=== PATIENT | male | born 1995 | race Caucasian/White ===

== ENCOUNTER 2017-01-14 20:00 | Observation (INO) | payer MEDICAID ==
[~2017-01-14] VITALS: Ht 177.8 cm; Wt 66.0 kg
[2017-01-14 20:04] VITALS: BP 139/96; PULSE 144; RESP 18; TEMP 98.4; O2SAT 95
[2017-01-15] VITALS (10 sets, daily range): BP systolic 100–131; BP diastolic 54–72; PULSE 75–100; RESP 16–20; TEMP 96.8–98; O2SAT 96–100
[2017-01-15] MEDS ORDERED: SODIUM CHLOR 0.9% 1000 ML INJ 1,000 ML IV ONE ×2 (01:03)
[2017-01-15] MEDS ORDERED: SODIUM CHLOR 0.9% 1000 ML INJ 100 ML IV ONE (01:03)
--- NOTE | 2017-01-15 01:07 | PD ---
HPI Chief Complaint: Skin Problem Time Seen by Provider: 00:58 Travel History International Travel<30 days: No Contact w/Intl Traveler<30days: No Traveled to known affect area: No History of Present Illness HPI The patient is a 21-year-old male who presents to the emergency department for erythema to the left upper extremity that radiates into the left axilla with some swelling under the left axilla. Patient does complain of subjective fevers and chills. 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 The patient states his symptoms started several days ago and progressively worsened. He does note mild tenderness along the medial aspect the left upper extremity and under the left axilla. He denies any current cough, nausea, vomiting, diarrhea, or abdominal pain. Symptoms are moderate, possibly exacerbated by history of IVDA, there are no current alleviating factors. The patient does not currently have a primary physician. The patient also complains of yellow penile discharge and burning with urination. PFSH Past Medical History ADHD: Yes (ADHD) Anxiety: Yes Depression: Yes Cancer: No Cardiovascular Problems: No Diabetes: No Diminished Hearing: No Psychiatric: Yes (PTSD, SEVERE ANXIETY, DEPRESSION, IMPULSIVE DISORDER.) Migraines: No Seizures: No Thyroid Disease: No Ulcer: No Past Surgical History Other Surgery: Yes (SKIN GRAFTS BILAT LEGS--AGE 13) Social History Alcohol Use: Yes (OCC) Tobacco Use: Yes (1/2 PPD) Substance Use: Yes (IV DRUG USE) Allergies-Medications (Allergen,Severity, Reaction): Coded Allergies: No Known Allergies (Unverified , 01/15/17) Reported Meds & Prescriptions Reported Meds & Active Scripts Active No Active Prescriptions or Reported Medications Review of Systems Except as stated in HPI: all other systems reviewed are Neg General / Constitutional: Positive: Fever, Chills Cardiovascular: No: Chest Pain or Discomfort Respiratory: No: Cough, Shortness of Breath Gastrointestinal: No: Nausea, Vomiting, Abdominal Pain Genitourinary: Positive: Dysuria, Other Skin: Positive Other (as noted in history of present illness) Neurologic: No: Weakness, Focal Abnormalities Psychiatric: Positive: Substance Abuse (IVDA with heroin) Physical Exam Narrative GENERAL: Awake, alert, 21-year-old male who appears his stated age and is in no acute respiratory distress. SKIN: Focused skin assessment warm/dry. The patient has some erythema along the medial aspect the left upper extremity consistent with lymphangitis/ lymphadenitis. HEAD: Atraumatic. Normocephalic. EYES: Pupils equal and round. No scleral icterus. No injection or drainage. ENT: No nasal bleeding or discharge. Mucous membranes pink and moist. NECK: Trachea midline. No JVD. CARDIOVASCULAR: Regular, tachycardic with a heart rate in the 120s. RESPIRATORY: No accessory muscle use. Clear to auscultation. Breath sounds equal bilaterally. GASTROINTESTINAL: Abdomen soft, non-tender, nondistended. No rebound tenderness. MUSCULOSKELETAL: Red streak going from the medial aspect the left antecubital fossa up the left upper extremity to the left axilla which is tender to palpation. Left inguinal lymphadenopathy noted that is tender to palpation. Multiple track fisher noted on the left upper extremity. NEUROLOGICAL: Awake and alert. No obvious cranial nerve deficits. Motor grossly within normal limits. Normal speech. Nonfocal. Oriented 4. PSYCHIATRIC: Appropriate mood and affect; insight and judgment normal. Data Data Last Documented VS Vital Signs Date Time Temp Pulse Resp B/P Pulse Ox O2 Delivery O2 Flow Rate FiO2 01/15/17 02:30 94 16 131/72 100 Room Air 01/14/17 20:04 98.4 Orders Electrocardiogram (01/15/17 01:03) Complete Blood Count With Diff (01/15/17 01:03) Comprehensive Metabolic Panel (01/15/17 01:03) Lactic Acid Sepsis Protocol (01/15/17 01:03) Urinalysis - C+S If Indicated (01/15/17 01:03) Blood Culture (01/15/17 01:03) Chest, Single Ap (01/15/17 01:03) Blood Glucose (01/15/17 01:03) Ecg Monitoring (01/15/17 01:03) Iv Access Insert/Monitor (01/15/17 01:03) Oximetry (01/15/17 01:03) Oxygen Administration (01/15/17 01:03) Acetaminophen (Tylenol) (01/15/17 01:15) Sodium Chlor 0.9% 1000 Ml Inj (Ns 1000 M (01/15/17 01:03) Sodium Chlor 0.9% 1000 Ml Inj (Ns 1000 M (01/15/17 01:03) Sodium Chlor 0.9% 1000 Ml Inj (Ns 1000 M (01/15/17 01:03) Piperacil-Tazo 4.5 Gm Premix (Zosyn 4.5 (01/15/17 01:15) Vancomycin Inj (Vancomycin Inj) (01/15/17 01:15) Ceftriaxone Inj (Rocephin Inj) (01/15/17 01:15) Azithromycin (Zithromax) (01/15/17 09:00) Gc And Chlamydia Pcr (01/15/17 01:08) Admit Order (Ed Use Only) (01/15/17 03:03) Vancomycin Consult Pharmacy (Vancomycin (01/15/17 03:15) Piperacil-Tazo 4.5 Gm Premix (Zosyn 4.5 (01/15/17 08:00) Place In Observation (01/15/17 ) Vital Signs (Adult) Q4H (01/15/17 03:08) Activity Oob Ad Argelia (01/15/17 03:08) Diet Regular Basic (01/15/17 Breakfast) Sodium Chlor 0.9% 1000 Ml Inj (Ns 1000 M (01/15/17 03:08) Sodium Chloride 0.9% Flush (Ns Flush) (01/15/17 03:15) Sodium Chloride 0.9% Flush (Ns Flush) (01/15/17 09:00) Ondansetron Inj (Zofran Inj) (01/15/17 03:15) Comprehensive Metabolic Panel (01/16/17 06:00) Complete Blood Count With Diff (01/16/17 06:00) Scd Bilateral/Knee High NERIS.BID (01/15/17 03:08) [place] Bilateral/Knee High NERIS.QSHIFT (01/15/17 03:08) Acetaminophen (Tylenol) (01/15/17 03:15) Oxycodone (Roxicodone) (01/15/17 03:15) Oxycodone (Roxicodone) (01/15/17 03:15) Docusate Sodium-Senna (Naomi-Colace) (01/15/17 09:00) Magnesium Hydroxide Liq (Milk Of Magnesi (01/15/17 03:15) Sennosides (Senokot) (01/15/17 03:15) Bisacodyl Supp (Dulcolax Supp) (01/15/17 03:15) Lactulose Liq (Lactulose Liq) (01/15/17 03:15) Echo 2d Comp With Doppler (01/15/17 ) Labs Laboratory Tests Test 01/15/17 01:25 White Blood Count 10.3 TH/MM3 Red Blood Count 4.60 MIL/MM3 Hemoglobin 13.1 GM/DL Hematocrit 37.7 % Mean Corpuscular Volume 81.9 FL Mean Corpuscular Hemoglobin 28.5 PG Mean Corpuscular Hemoglobin 34.9 % Concent Red Cell Distribution Width 12.8 % Platelet Count 347 TH/MM3 Mean Platelet Volume 7.2 FL Neutrophils (%) (Auto) 69.7 % Lymphocytes (%) (Auto) 18.0 % Monocytes (%) (Auto) 10.9 % Eosinophils (%) (Auto) 0.8 % Basophils (%) (Auto) 0.6 % Neutrophils # (Auto) 7.2 TH/MM3 Lymphocytes # (Auto) 1.8 TH/MM3 Monocytes # (Auto) 1.1 TH/MM3 Eosinophils # (Auto) 0.1 TH/MM3 Basophils # (Auto) 0.1 TH/MM3 CBC Comment DIFF FINAL Differential Comment Sodium Level 136 MEQ/L Potassium Level 3.3 MEQ/L Chloride Level 97 MEQ/L Carbon Dioxide Level 32.2 MEQ/L Anion Gap 7 MEQ/L Blood Urea Nitrogen 15 MG/DL Creatinine 0.80 MG/DL Estimat Glomerular Filtration 125 ML/MIN Rate Random Glucose 90 MG/DL Lactic Acid Level 1.0 mmol/L Calcium Level 9.2 MG/DL Total Bilirubin 0.6 MG/DL Aspartate Amino Transf 20 U/L (AST/SGOT) Alanine Aminotransferase 25 U/L (ALT/SGPT) Alkaline Phosphatase 76 U/L Total Protein 9.0 GM/DL Albumin 4.0 GM/DL [facility] Medical Decision Making Medical Screen Exam Complete: Yes Emergency Medical Condition: Yes Medical Record Reviewed: Yes Interpretation(s) EKG reveals normal sinus rhythm with a rate in 91. RSR prime in V1. Laboratory Tests Test 01/15/17 01:25 White Blood Count 10.3 TH/MM3 Red Blood Count 4.60 MIL/MM3 Hemoglobin 13.1 GM/DL Hematocrit 37.7 % Mean Corpuscular Volume 81.9 FL Mean Corpuscular Hemoglobin 28.5 PG Mean Corpuscular Hemoglobin 34.9 % Concent Red Cell Distribution Width 12.8 % Platelet Count 347 TH/MM3 Mean Platelet Volume 7.2 FL Neutrophils (%) (Auto) 69.7 % Lymphocytes (%) (Auto) 18.0 % Monocytes (%) (Auto) 10.9 % Eosinophils (%) (Auto) 0.8 % Basophils (%) (Auto) 0.6 % Neutrophils # (Auto) 7.2 TH/MM3 Lymphocytes # (Auto) 1.8 TH/MM3 Monocytes # (Auto) 1.1 TH/MM3 Eosinophils # (Auto) 0.1 TH/MM3 Basophils # (Auto) 0.1 TH/MM3 CBC Comment DIFF FINAL Differential Comment Sodium Level 136 MEQ/L Potassium Level 3.3 MEQ/L Chloride Level 97 MEQ/L Carbon Dioxide Level 32.2 MEQ/L Anion Gap 7 MEQ/L Blood Urea Nitrogen 15 MG/DL Creatinine 0.80 MG/DL Estimat Glomerular Filtration 125 ML/MIN Rate Random Glucose 90 MG/DL Lactic Acid Level 1.0 mmol/L Calcium Level 9.2 MG/DL Total Bilirubin 0.6 MG/DL Aspartate Amino Transf 20 U/L (AST/SGOT) Alanine Aminotransferase 25 U/L (ALT/SGPT) Alkaline Phosphatase 76 U/L Total Protein 9.0 GM/DL Albumin 4.0 GM/DL Differential Diagnosis Differential diagnoses includes IVDA, sepsis, septicemia, ureteritis, gonorrhea , chlamydia, endocarditis, epidural abscess, substance abuse. Narrative Course IV was established, labs are drawn and sent, and the patient was placed on cardiac telemetry monitoring and continuous pulse oximetry monitoring. UA was sent to lab for [facility] PCR. The patient was administered Rocephin and Zithromax. 2 sets of blood cultures were obtained and lactic acid was sent to lab. The patient was administered Rocephin and Zithromax for possible gonorrhea/ chlamydia. After blood cultures and lactic acid were obtained the patient did receive Zosyn and vancomycin for probable bacteremia/septicemia secondary to IVDA. White count is normal. Lactic acid is normal. Lactic acid is normal. Patient will need 23 hour observation until first set of blood cultures is negative. Physician Communication Physician Communication I discussed the patient with Dr. Arroyo who agrees with 23 observation. Diagnosis Primary Impression: Lymphangitis Additional Impression: IVDU (intravenous drug user) Admitting Information Admitting Physician Requests: Observation Scripts No Active Prescriptions or Reported Meds Condition: Stable Cruzito Vega MD Jan 15, 2017 01:07
[2017-01-15] MEDS ORDERED: ACETAMINOPHEN 325 MG TAB PO ONE (01:15)
[2017-01-15] MEDS ORDERED: cefTRIAXone 250 MG VIAL IM ONE (01:15)
[2017-01-15] MEDS ORDERED: VANCOMYCIN INJ 1,000 MG in SODIUM CHLOR 0.9% 250 ML INJ 250 ML IV ONE (01:15)
[2017-01-15] MEDS ORDERED: PIPERACIL-TAZO 4.5 GM PREMIX 100 ML IV ONE (01:15)
--- NOTE | 2017-01-15 01:29 | RADRPT ---
EXAM DATE/TIME: 01/15/2017 01:19 [place] COMPARISON: No previous studies available for comparison. INDICATIONS : Chest pain. MEDICAL HISTORY : None. SURGICAL HISTORY : None. ENCOUNTER: Initial ACUITY: 2 days PAIN SCORE: 8/10 LOCATION: Right chest FINDINGS: A single view of the chest demonstrates the lungs to be symmetrically aerated without evidence of mas s, infiltrate or effusion. The cardiomediastinal contours are unremarkable. Osseous structures are intact. CONCLUSION: No acute disease. Yonatan López MD on January 15, 2017 at 1:27 Board Certified Radiologist. This report was verified electronically.
[2017-01-15 01:42] LABS: AUTOMATED NEUTROPHIL # 7.2 TH/MM3 (1.8-7.7); BASOPHIL # 0.1 TH/MM3 (0-0.2); BASOPHIL % 0.6 % (0.0-2.0); EOSINOPHIL # 0.1 TH/MM3 (0-0.4); EOSINOPHIL % 0.8 % (0.0-4.0); HEMATOCRIT 37.7 % (39.0-51.0); HEMO FLAGS DIFF FINAL; LYMPHOCYTE # 1.8 TH/MM3 (1.0-4.8); MEAN CELL VOLUME 81.9 FL (80.0-100.0); MEAN CORPUSCULAR HEMOGLOBIN 28.5 PG (27.0-34.0); MEAN CORPUSCULAR HGB CONC 34.9 % (32.0-36.0); MONO % 10.9 % (0.0-8.0); NEUT % 69.7 % (16.0-70.0); PLATELET COUNT 347 TH/MM3 (150-450); RED CELL DISTRIBUTION WIDTH 12.8 % (11.6-17.2); WHITE BLOOD COUNT 10.3 TH/MM3 (4.0-11.0)
[2017-01-15 02:00] LABS: ALKALINE PHOSPHATASE 76 U/L (45-117); TOTAL BILIRUBIN ADULT 0.6 MG/DL (0.2-1.0)
[2017-01-15 02:09] LABS: ALT (GPT) 25 U/L (9-52); ANION GAP 7 MEQ/L (5-15); AST (GOT) 20 U/L (15-39); BICARBONATE 32.2 MEQ/L (21.0-32.0); BLOOD UREA NITROGEN 15 MG/DL (7-18); CHLORIDE 97 MEQ/L (98-107); GLOMERULAR FILTRATION RATE 125 ML/MIN (>89); POTASSIUM 3.3 MEQ/L (3.5-5.1); SODIUM (NA) 136 MEQ/L (136-145)
[2017-01-15] MEDS ORDERED: LACTULOSE SYRUP 20 GM/30 ML CUP PO PRN (03:15)
[2017-01-15] MEDS ORDERED: SENNOSIDES 8.6 MG TAB PO PRN (03:15)
[2017-01-15] MEDS ORDERED: Vancomycin Consult Pharmacy 1 EA OTHER SCH (03:15)
[2017-01-15] MEDS ORDERED: BISACODYL 10 MG SUPP RECTAL PRN (03:15)
[2017-01-15] MEDS ORDERED: ACETAMINOPHEN 325 MG TAB PO PRN (03:15)
[2017-01-15] MEDS ORDERED: ONDANSETRON HCL 4 MG/2 ML VIAL IVP PRN (03:15)
[2017-01-15] MEDS ORDERED: MAGNESIUM HYDROXIDE SUSP 30 ML CUP PO PRN (03:15)
[2017-01-15] MEDS ORDERED: SODIUM CHLORIDE 0.9% FLUSH 10 ML FLUSH IV FLUSH PRN (03:15)
[2017-01-15 04:06] LABS: BACTERIA, URINE RARE /hpf; BLOOD, URINE NEG (NEG); COMMENT (UR) CATH-CULTURE IND; CULTURE IF INDICATED CATH CULTURE IND; GLUCOSE,URINE NEG (NEG); HYALINE CAST, URINE 3 /lpf (RARE); KETONE, URINE NEG (NEG); MUCUS URINE FEW /lpf (OCC); NITRITE,URINE NEG (NEG); RENAL EPITHELIAL CELLS <1 /hpf; SQUAMOUS EPITHELIAL CELL URINE <1 /hpf (0-5); URINE COLOR YELLOW (YELLW/STRAW)
[2017-01-15] MEDS: SODIUM CHLOR 0.9% 1000 ML INJ 1,000 ML IV SCH ×3 (04:16→23:23)
--- NOTE | 2017-01-15 04:27 | HHI.HP ---
HPI Service [facility] Primary Care Physician No Primary Care Physician Admission Diagnosis lymphadenitis secondary to IVDA, rule out septicemia/bacteremia Diagnoses: (1) Lymphangitis Diagnosis: Principal (2) IVDU (intravenous drug user) Diagnosis: Principal (3) Hypokalemia Diagnosis: Principal (4) Tachycardia Diagnosis: Principal (5) UTI (urinary tract infection) Diagnosis: Principal Travel History International Travel<30 Days: No Contact w/Intl Traveler <30 Da: No Traveled to Known Affected Are: No History of Present Illness This is a 21-year-old male with a PMH of Anxiety, Depression, Impulsive Disorder , h/o Suicide Attempt and IVDU who presented to the ER with complaints of left arm swelling and pain x3 days. States symptoms have gotten progressively worse since yesterday. Reports subjective fever/chills. On arrival, BP 139/96, HR 144, O2 sat 95% on RA, Afebrile. CBC unremarkable. K+ 3.3. Lactic Acid 1.0. UA w/ UTI. CXR with no acute findings. S/p Blood Cultures, Vanc/Zosyn in ER. Review of Systems Except as stated in HPI: all other systems reviewed are Neg ROS: 14 point review of systems otherwise negative. Past Family Social History Past Medical History PMH: Anxiety, Depression, Impulsive Disorder, h/o Suicide Attempt and IVDU Past Surgical History PAST SURGICAL HISTORY: Skin Grafts Allergies: Coded Allergies: No Known Allergies (Unverified , 01/15/17) Family History PAST FAMILY HISTORY: Reviewed. No h/o DM or CAD Social History PAST SOCIAL HISTORY: Occasional alcohol. Positive for tobacco. Positive for IVDU. Physical Exam Vital Signs Vital Signs Date Time Temp Pulse Resp B/P Pulse Ox O2 Delivery O2 Flow Rate FiO2 01/15/17 02:30 94 16 131/72 100 Room Air 01/14/17 20:04 98.4 144 18 139/96 95 Room Air Physical Exam PE: GENERAL: Young white male in no acute distress. HEENT: PERRLA, EOMI. No scleral icterus or conjunctival pallor. No lid lag or facial droop. CARDIOVASCULAR: Regular rate and rhythm. No obvious murmurs to auscultation. No chest tenderness to palpation. RESPIRATORY: No obvious rhonchi or wheezing. Clear to auscultation. Breath sounds equal bilaterally. GASTROINTESTINAL: Abdomen soft, non-tender, nondistended. BS normal. MUSCULOSKELETAL: Extremities without clubbing, cyanosis, or edema. No obvious deformities. LUE with erythema/lymphangitis up to axilla and assoc streaking. + track fisher NEUROLOGICAL: Awake, alert and oriented x4. No focal neurologic deficits. Moving both upper and lower extremities spontaneously. Laboratory Laboratory Tests Test 01/15/17 01/15/17 01:25 03:30 White Blood Count 10.3 Red Blood Count 4.60 Hemoglobin 13.1 Hematocrit 37.7 Mean Corpuscular Volume 81.9 Mean Corpuscular Hemoglobin 28.5 Mean Corpuscular Hemoglobin 34.9 Concent Red Cell Distribution Width 12.8 Platelet Count 347 Mean Platelet Volume 7.2 Neutrophils (%) (Auto) 69.7 Lymphocytes (%) (Auto) 18.0 Monocytes (%) (Auto) 10.9 Eosinophils (%) (Auto) 0.8 Basophils (%) (Auto) 0.6 Neutrophils # (Auto) 7.2 Lymphocytes # (Auto) 1.8 Monocytes # (Auto) 1.1 Eosinophils # (Auto) 0.1 Basophils # (Auto) 0.1 CBC Comment DIFF FINAL Differential Comment Sodium Level 136 Potassium Level 3.3 Chloride Level 97 Carbon Dioxide Level 32.2 Anion Gap 7 Blood Urea Nitrogen 15 Creatinine 0.80 Estimat Glomerular Filtration 125 Rate Random Glucose 90 Lactic Acid Level 1.0 Calcium Level 9.2 Total Bilirubin 0.6 Aspartate Amino Transf 20 (AST/SGOT) Alanine Aminotransferase 25 (ALT/SGPT) Alkaline Phosphatase 76 Total Protein 9.0 Albumin 4.0 Urine Color YELLOW Urine Turbidity HAZY Urine pH 6.0 Urine Specific [place] 1.016 Urine Protein 30 Urine Glucose (UA) NEG Urine Ketones NEG Urine Occult Blood NEG Urine Nitrite NEG Urine Bilirubin NEG Urine Urobilinogen LESS THAN 2.0 Urine Leukocyte Esterase LARGE Urine RBC 1 Urine WBC 60 Urine Squamous Epithelial <1 Cells Urine Renal Epithelial Cells <1 Urine Bacteria RARE Urine Hyaline Casts 3 Urine Mucus FEW Microscopic Urinalysis Comment CATH-CULTURE IND Date/Time Procedure Status Source Growth 01/15/17 03:30 Urine Culture Received Urine Catheterized Urine Pending 01/15/17 01:25 Aerobic Blood Culture Received Blood Peripheral Pending 01/15/17 01:25 Anaerobic Blood Culture Received Blood Peripheral Pending Result Diagram: 01/15/1712401/15/17124 Assessment and Plan Problem List: (1) Lymphangitis ICD Code: I89.1 Status: Acute (2) IVDU (intravenous drug user) ICD Code: F19.90 Status: Acute (3) Hypokalemia ICD Code: E87.6 Status: Acute (4) Tachycardia ICD Code: R00.0 Status: Acute (5) UTI (urinary tract infection) ICD Code: N39.0 Status: Acute Assessment and Plan A/P: 1. Lymphangitis: s/p IVDU w/ progressive erythema/tenderness of LUE, + streaking. WBC normal, afebrile. S/p Blood Cultures, Vanc/Zosyn. Will follow cultures, continue w/ IV Abx, check Echo to eval for possible endocarditis. 2. IVDU: Pt counselled, however no apparent desire to quit at this time. Ativan prn for withdrawal/agitation. 3. Hypokalemia: K+ 3.3, will replace and recheck in am. 4. Tachycardia: Likely secondary to acute infection/dehydration. No evidence of sepsis. S/p IVF, HR now improved to 90's. Will continue to monitor. IVF. 5. UTI: U/a w/ UTI. Continue w/ IV Abx, IVF. 6. DVT Prophylaxis: SCD/teds. 7. Social work for DC planning as needed. 8. Case discussed at length with ER physician. Adriana Arroyo MD Jan 15, 2017 04:27
[2017-01-15] MEDS: LORazepam 2 MG/ML VIAL IV PUSH PRN ×3 (04:37→23:24)
[2017-01-15 05:52] LABS: CHLAMYDIA PCR NOT DETECTED (NOT DETECT); NEISSERIA PCR DETECTED (NOT DETECT)
[2017-01-15] MEDS: PIPERACIL-TAZO 4.5 GM PREMIX 100 ML IV SCH ×3 (08:29→22:40)
[2017-01-15] MEDS: DOCUSATE SODIUM 50 MG/SENNA 8.6 MG TAB PO SCH ×2 (08:30→20:44)
[2017-01-15] MEDS: SODIUM CHLORIDE 0.9% FLUSH 10 ML FLUSH IV FLUSH SCH ×2 (08:32→20:45)
[2017-01-15] MEDS: AZITHROMYCIN 250 MG TAB PO SCH (08:32)
[2017-01-15] MEDS ORDERED: POTASSIUM CHLORIDE 20 MEQ CONTROLLED RELEASE TAB PO ONE (11:30)
--- NOTE | 2017-01-15 11:31 | HHI.PR ---
Subjective Remarks Follow up for LUE cellulitis/lymphangitis. The patient reports continued LUE redness/swelling/pain, however improved compared to yesterday. He reports subjective fevers and chills but no documented fevers overnight. He denies any chest pain or shortness of breath. He has been using IV drugs for over a year now. He injects heroin mostly. He expresses desire to quit and is interested in starting methadone or suboxone after discharge. He has local family who he says is supportive but "not very happy" with him right now. Objective Vitals Vital Signs Date Time Temp Pulse Resp B/P Pulse Ox O2 Delivery O2 Flow Rate FiO2 01/15/17 05:32 79 01/15/17 04:54 97.9 79 18 100/59 99 01/15/17 04:30 86 16 123/65 100 Room Air 01/15/17 02:30 94 16 131/72 100 Room Air 01/14/17 20:04 98.4 144 18 139/96 95 Room Air I/O 01/14/17 01/14/17 01/14/17 01/15/17 01/15/17 01/15/17 07:00 15:00 23:00 07:00 15:00 23:00 Intake Total 1426 ml Balance 1426 ml Intake Oral 240 ml IV Total 1186 ml Result Diagram: 01/15/17 0125 01/15/17 0125 Imaging Last Impressions Chest X-Ray 01/15/17 0103 Signed Impressions: Service Date/Time: Sunday, January 15, 2017 01:19 - CONCLUSION: No acute disease. Yonatan López MD Objective Remarks GENERAL: Well-nourished, well-developed young male patient in [facility]. SKIN: Warm and dry. Diffuse track fisher. Left upper arm with diffuse edema, tenderness to palpation, streaks of erythema up to axilla consistent with lymphangitis, no obvious abscess/fluctuance/drainage. HEENT: Normocephalic. Atraumatic.Pupils equal and round. Mucous membranes pink and moist. NECK: Supple. Trachea midline. CARDIOVASCULAR: Regular rate and rhythm. S1, S2 noted. No murmur appreciated. RESPIRATORY: No accessory muscle use. Clear to auscultation. Breath sounds equal bilaterally. GASTROINTESTINAL: Abdomen soft, non-tender, nondistended. Normoactive bowel sounds x4. MUSCULOSKELETAL: No obvious deformities. Extremities without clubbing, cyanosis , or edema. NEUROLOGICAL: Awake and alert. No obvious cranial nerve deficits. Motor grossly within normal limits. Normal speech. PSYCHIATRIC: Appropriate mood and affect; insight and judgment normal. Medications and IVs Current Medications Medications (Trade) Dose Ordered Sig/Arcelia Route Start Time Stop Time Status Last Admin Azithromycin 1000 mg 1,000 mg DAILY PO 01/15/17 09:00 01/15/17 08:32 Pharmacy Profile Note 0 ml @ 0 mls/hr UNSCH OTHER 01/15/17 03:15 Piperacillin Sod/ Tazobactam Sod 100 ml @ 200 mls/hr Q6H IV 01/15/17 08:00 01/15/17 08:29 (NS 1000 ml Inj) 1,000 ml @ 100 mls/hr Q10H IV 01/15/17 03:08 01/15/17 04:16 (NS Flush) 2 ml UNSCH PRN IV FLUSH 01/15/17 03:15 (NS Flush) 2 ml BID IV FLUSH 01/15/17 09:00 (Zofran Inj) 4 mg Q6H PRN IVP 01/15/17 03:15 (Tylenol) 650 mg Q6H PRN PO 01/15/17 03:15 (Roxicodone) 10 mg Q4H PRN PO 01/15/17 03:15 01/15/17 10:26 (Roxicodone) 5 mg Q4H PRN PO 01/15/17 03:15 (Naomi-Colace) 1 tab BID PO 01/15/17 09:00 01/15/17 08:30 (Milk Of Magnesia Liq) 30 ml Q12H PRN PO 01/15/17 03:15 (Senokot) 17.2 mg Q12H PRN PO 01/15/17 03:15 (Dulcolax Supp) 10 mg DAILY PRN RECTAL 01/15/17 03:15 (Lactulose Liq) 30 ml DAILY PRN PO 01/15/17 03:15 Lorazepam 1 mg 1 mg Q2H PRN IV PUSH 01/15/17 04:30 01/15/17 04:37 (Vancomycin Inj/ NS 250 ml Inj) 250 ml @ 250 mls/hr Q8H IV 01/15/17 12:00 Miscellaneous Information SPECIFIC LAB TO BE DRAWN:[facility]... ONCE ONCE .XX 01/16/17 12:00 01/16/17 12:01 A/P Problem List: (1) Lymphangitis ICD Code: I89.1 Status: Acute (2) IVDU (intravenous drug user) ICD Code: F19.90 Status: Acute (3) Hypokalemia ICD Code: E87.6 Status: Acute (4) Tachycardia ICD Code: R00.0 Status: Acute (5) UTI (urinary tract infection) ICD Code: N39.0 Status: Acute Assessment and Plan 21-year-old male with a PMH of Anxiety, Depression, Impulsive Disorder, h/o Suicide Attempt and IVDU who presented to the ER with complaints of left arm swelling and pain x3 days. Cellulitis/Lymphangitis: s/p IVDU w/ progressive erythema/tenderness of LUE, + streaking. WBC normal, afebrile. Monitor Blood Cultures. Continue IV Vanc/ Zosyn. Check Echo to eval for possible endocarditis. Symptoms improving. IVDU: Pt extensively counseled, he now expresses some desire to quit, interested in methadone/suboxone, discussed extensively to follow up with drug rehab after discharge. Will ask case management to provide information on drug rehab. Ativan prn for withdrawal/agitation. Hypokalemia: K+ 3.3, given po KCl replacement. Repeat K. Tachycardia: Likely secondary to acute infection/dehydration. No evidence of sepsis. S/p IVF, HR now improved to 90's. Continue to monitor. IVF. UTI: U/a w/ UTI. Continue w/ IV Abx as above. Continue IVF. Monitor urine culture. DVT Prophylaxis: SCD/teds. Cary Jeronimo PA-C Jan 15, 2017 11:31 am
--- NOTE | 2017-01-15 11:53 | EKG ---
Date Performed: 01/15/2017 Time Performed: 01:54:00 PTAGE: 21 years EKG: Sinus rhythm POSSIBLE RIGHT VENTRICULAR CONDUCTION DELAY Since previous tracing, no significant change noted [facility] ECG PREVIOUS TRACING : 04/20/2016 03.39 DOCTOR: Matt Heck Interpretating Date/Time 01/15/2017 11:51:53
[2017-01-15] MEDS: VANCOMYCIN 1,000 MG/NS 250 ML IV SCH ×4 (12:35→20:44)
[2017-01-16] VITALS (7 sets, daily range): BP systolic 108–130; BP diastolic 54–71; PULSE 68–88; RESP 16–48; TEMP 98.1–98.6; O2SAT 97–100
[2017-01-16] MEDS: PIPERACIL-TAZO 4.5 GM PREMIX 100 ML IV SCH ×4 (02:58→21:33)
[2017-01-16] MEDS: VANCOMYCIN 1,000 MG/NS 250 ML IV SCH ×4 (04:17→12:08)
[2017-01-16 07:37] LABS: AUTOMATED NEUTROPHIL # 4.1 TH/MM3 (1.8-7.7); BASOPHIL # 0.1 TH/MM3 (0-0.2); BASOPHIL % 0.7 % (0.0-2.0); EOSINOPHIL # 0.2 TH/MM3 (0-0.4); EOSINOPHIL % 3.2 % (0.0-4.0); HEMATOCRIT 32.6 % (39.0-51.0); HEMO FLAGS DIFF FINAL; LYMPH % 27.6 % (9.0-44.0); MEAN CELL VOLUME 83.3 FL (80.0-100.0); MEAN CORPUSCULAR HEMOGLOBIN 28.4 PG (27.0-34.0); MEAN CORPUSCULAR HGB CONC 34.1 % (32.0-36.0); MONO % 11.2 % (0.0-8.0); NEUT % 57.3 % (16.0-70.0); PLATELET COUNT 289 TH/MM3 (150-450); RED BLOOD COUNT 3.91 MIL/MM3 (4.50-5.90); RED CELL DISTRIBUTION WIDTH 12.8 % (11.6-17.2); WHITE BLOOD COUNT 7.2 TH/MM3 (4.0-11.0)
[2017-01-16 08:17] LABS: ALKALINE PHOSPHATASE 66 U/L (45-117); ALT (GPT) 24 U/L (9-52); ANION GAP 6 MEQ/L (5-15); AST (GOT) 15 U/L (15-39); BICARBONATE 27.8 MEQ/L (21.0-32.0); BLOOD UREA NITROGEN 8 MG/DL (7-18); CHLORIDE 107 MEQ/L (98-107); GLOMERULAR FILTRATION RATE 136 ML/MIN (>89); POTASSIUM 3.7 MEQ/L (3.5-5.1); SODIUM (NA) 141 MEQ/L (136-145); TOTAL BILIRUBIN ADULT 0.2 MG/DL (0.2-1.0)
[2017-01-16] MEDS: SODIUM CHLORIDE 0.9% FLUSH 10 ML FLUSH IV FLUSH SCH ×2 (09:00→21:34)
[2017-01-16] MEDS: DOCUSATE SODIUM 50 MG/SENNA 8.6 MG TAB PO SCH ×2 (09:46→21:34)
[2017-01-16] MEDS: AZITHROMYCIN 250 MG TAB PO SCH (09:46)
[2017-01-16] MEDS: SODIUM CHLOR 0.9% 1000 ML INJ 1,000 ML IV SCH (09:48)
--- NOTE | 2017-01-16 10:27 | HHI.PR ---
Subjective Remarks Follow up for LUE cellulitis/lymphangitis. The patient reports continued improvement of LUE erythema and edema, however batch still operator to touch. No fevers overnight. Denies any chest pain or shortness of breath. He has no other medical complaints at this time. Objective Vitals Vital Signs Date Time Temp Pulse Resp B/P Pulse Ox O2 Delivery O2 Flow Rate FiO2 01/16/17 08:55 98.4 70 16 108/54 98 01/15/17 23:49 98.0 88 18 125/57 99 01/15/17 23:23 20 01/15/17 20:53 97.8 86 18 108/62 96 01/15/17 20:00 85 01/15/17 16:08 96.8 75 18 111/58 96 01/15/17 11:39 97.8 80 20 113/54 96 I/O 01/15/17 01/15/17 01/15/17 01/16/17 01/16/17 01/16/17 07:00 15:00 23:00 07:00 15:00 23:00 Intake Total 1426 ml 350 ml Balance 1426 ml 350 ml Intake Oral 240 ml 350 ml IV Total 1186 ml # Voids 2 Result Diagram: 01/16/17 0710 01/16/17 0710 Imaging Last Impressions Chest X-Ray 01/15/17 0103 Signed Impressions: Service Date/Time: Tuesday, January 15, 2017 01:19 - CONCLUSION: No acute disease. Yonatan López MD Objective Remarks GENERAL: Well-nourished, well-developed young male patient in [facility]. SKIN: Warm and dry. Diffuse track fisher. Left upper arm with diffuse mild edema , tenderness to palpation, streaks resolved, no obvious abscess/fluctuance/ drainage; much improved today. HEENT: Normocephalic. Atraumatic.Pupils equal and round. Mucous membranes pink and moist. NECK: Supple. Trachea midline. CARDIOVASCULAR: Regular rate and rhythm. S1, S2 noted. No murmur appreciated. RESPIRATORY: No accessory muscle use. Clear to auscultation. Breath sounds equal bilaterally. GASTROINTESTINAL: Abdomen soft, non-tender, nondistended. Normoactive bowel sounds x4. MUSCULOSKELETAL: No obvious deformities. Extremities without clubbing, cyanosis , or edema. NEUROLOGICAL: Awake and alert. No obvious cranial nerve deficits. Motor grossly within normal limits. Normal speech. PSYCHIATRIC: Appropriate mood and affect; insight and judgment normal. Medications and IVs Current Medications Medications (Trade) Dose Ordered Sig/Arcelia Route Start Time Stop Time Status Last Admin Azithromycin 1000 mg 1,000 mg DAILY PO 01/15/17 09:00 01/16/17 09:46 Pharmacy Profile Note 0 ml @ 0 mls/hr UNSCH OTHER 01/15/17 03:15 Piperacillin Sod/ Tazobactam Sod 100 ml @ 200 mls/hr Q6H IV 01/15/17 08:00 01/16/17 07:47 (NS 1000 ml Inj) 1,000 ml @ 100 mls/hr Q10H IV 01/15/17 03:08 01/16/17 09:48 (NS Flush) 2 ml UNSCH PRN IV FLUSH 01/15/17 03:15 (NS Flush) 2 ml BID IV FLUSH 01/15/17 09:00 01/15/17 20:45 (Zofran Inj) 4 mg Q6H PRN IVP 01/15/17 03:15 (Tylenol) 650 mg Q6H PRN PO 01/15/17 03:15 (Roxicodone) 10 mg Q4H PRN PO 01/15/17 03:15 01/16/17 09:46 (Roxicodone) 5 mg Q4H PRN PO 01/15/17 03:15 (Naomi-Colace) 1 tab BID PO 01/15/17 09:00 01/16/17 09:46 (Milk Of Magnesia Liq) 30 ml Q12H PRN PO 01/15/17 03:15 (Senokot) 17.2 mg Q12H PRN PO 01/15/17 03:15 (Dulcolax Supp) 10 mg DAILY PRN RECTAL 01/15/17 03:15 (Lactulose Liq) 30 ml DAILY PRN PO 01/15/17 03:15 Lorazepam 1 mg 1 mg Q2H PRN IV PUSH 01/15/17 04:30 01/15/17 23:24 (Vancomycin Inj/ NS 250 ml Inj) 250 ml @ 250 mls/hr Q8H IV 01/15/17 12:00 01/16/17 04:17 Miscellaneous Information SPECIFIC LAB TO BE DRAWN:[facility]... ONCE ONCE .XX 01/16/17 12:00 01/16/17 12:01 A/P Problem List: (1) Lymphangitis ICD Code: I89.1 Status: Acute (2) IVDU (intravenous drug user) ICD Code: F19.90 Status: Acute (3) Hypokalemia ICD Code: E87.6 Status: Acute (4) Tachycardia ICD Code: R00.0 Status: Acute (5) UTI (urinary tract infection) ICD Code: N39.0 Status: Acute Assessment and Plan 21-year-old male with a PMH of Anxiety, Depression, Impulsive Disorder, h/o Suicide Attempt and IVDU who presented to the ER with complaints of left arm swelling and pain x3 days. Cellulitis/Lymphangitis: s/p IVDU w/ progressive erythema/tenderness of LUE, + streaking. WBC normal, afebrile. Monitor Blood Cultures. Continue IV Vanc/ Zosyn. Check Echo to eval for possible endocarditis. Symptoms improving. IVDU: Pt extensively counseled, he now expresses some desire to quit, interested in methadone/suboxone, discussed extensively to follow up with drug rehab after discharge. Case management provided information on drug rehab programs. Ativan prn for withdrawal/agitation. Hypokalemia: K+ 3.3, given po KCl replacement. Repeat K 3.7, resolved. Tachycardia: Likely secondary to acute infection/dehydration. No evidence of sepsis. S/p IVF, HR now improved to 70's. Continue to monitor. Will d/c IVF. UTI: U/a w/ UTI. Continue w/ IV Abx as above. Monitor urine culture. DVT Prophylaxis: SCD/teds. Discharge Planning Discharge if blood cultures and echocardiogram unremarkable. 1300hrs: Blood cultures and urine culture with no growth. RN has been attempting to get ahold of technical manager all morning. RN now reports technical manager says echo will only be done if ordered stat on the weekends. The echo was ordered at 3am (over 34 hours ago). Will change echo order to stat. Patient can be discharged if echocardiogram is negative. 1800hrs: Echocardiogram unremarkable. Discussed with Dr. Edwards, recommends continuing observation until blood cultures negative x48hrs (currently only negative x1day). Can likely discharge tomorrow. Cary Jeronimo PA-C Jan 16, 2017 10:27 am
[2017-01-16] MEDS ORDERED: PHARMACY ORDERED LAB ONE (12:00)
[2017-01-16] MEDS: LORazepam 2 MG/ML VIAL IV PUSH PRN ×2 (12:27→23:59)
--- NOTE | 2017-01-16 15:36 | ECHRPT ---
Indication: endocarditis CONCLUSIONS Normal left ventricular size. Wall thickness is normal. The left ventricular systolic function is hyperdynamic with an estimated ejection fraction in the ra nge of 65- 70%. No regional wall motion abnormalities are present. Mild mitral valve regurgitation. BP: / HR: Rhythm: MEASUREMENTS (Male / Female) Normal Values Technical Quality:Good 2D ECHO LV Diastolic Diameter PLAX 4.8 cm 4.2 - 5.9 / 3.9 - 5.3 cm LV Systolic Diameter PLAX 3.0 cm IVS Diastolic Thickness 1.0 cm 0.6 - 1.0 / 0.6 - 0.9 cm LVPW Diastolic Thickness 1.0 cm 0.6 - 1.0 / 0.6 - 0.9 cm LV Relative Wall Thickness 0.4 RV Internal Dim ED PLAX 3.2 cm M-MODE Aortic Root Diameter MM 3.0 cm LA Systolic Diameter MM 2.6 cm LA Ao Ratio MM 0.9 AV Cusp Separation MM 2.3 cm DOPPLER Mitral E Point Velocity 93.8 cm/s Mitral A Point Velocity 52.8 cm/s Mitral E to A Ratio 1.8 LV E' Lateral Velocity 14.9 cm/s Mitral E to LV E' Lateral Ratio 6.3 LV E' Septal Velocity 11.8 cm/s Mitral E to LV E' Septal Ratio 7.9 TR Peak Velocity 242.0 cm/s TR Peak Gradient 23.4 mmHg FINDINGS LEFT VENTRICLE Normal left ventricular size. Wall thickness is normal. The left ventricular systolic function is hyperdynamic with an estimated ejection fraction in the ra nge of 65- 70%. No regional wall motion abnormalities are present. RIGHT VENTRICLE Normal right ventricular size and systolic function. LEFT ATRIUM The left atrial size is normal. RIGHT ATRIUM The right atrial size is normal. ATRIAL SEPTUM Normal atrial septal thickness without atrial level shunting by limited color doppler interrogation. AORTA The aortic root and proximal ascending aorta are normal in size on limited imaging. MITRAL VALVE Structurally normal mitral valve. Mild mitral valve regurgitation. AORTIC VALVE Trileaflet aortic valve. No aortic valve regurgitation. TRICUSPID VALVE Structurally normal tricuspid valve. There is mild tricuspid valve regurgitation. PULMONARY VALVE The pulmonary valve is not well visualized. VESSELS The inferior vena cava is normal in size. PERICARDIUM There is no pericardial effusion. Timothy Cuevas MD (Electronically Signed) Final Date:16 January 2017 15:35
[2017-01-16] MEDS: VANCOMYCIN INJ 1,250 MG in SODIUM CHLOR 0.9% 250 ML INJ 250 ML IV SCH (17:51)
[2017-01-17] MEDS: VANCOMYCIN INJ 1,250 MG in SODIUM CHLOR 0.9% 250 ML INJ 250 ML IV SCH (02:21)
[2017-01-17 03:19] VITALS: BP 108/64; PULSE 78; RESP 18; TEMP 98.2; O2SAT 98
[2017-01-17] MEDS: PIPERACIL-TAZO 4.5 GM PREMIX 100 ML IV SCH ×2 (03:30→08:19)
[2017-01-17] MEDS: DOCUSATE SODIUM 50 MG/SENNA 8.6 MG TAB PO SCH (08:19)
[2017-01-17] MEDS: SODIUM CHLORIDE 0.9% FLUSH 10 ML FLUSH IV FLUSH SCH (08:19)
[2017-01-17 08:30] VITALS: BP 107/55; PULSE 63; PULSE 88; RESP 14; TEMP 97.6; O2SAT 98
[2017-01-17] MEDS ORDERED: IBUPROFEN 600 MG TAB PO PRN (09:15)
--- NOTE | 2017-01-17 09:20 | HHI.PR ---
Subjective Remarks Follow-up for left upper extremity cellulitis and IV drug abuse. Patient is doing well today. He does report some soreness in his left arm. He reports that swelling and redness of his arm have resolved. He denies any fevers or chills. He feels like he is already pretty well detoxed and plans to follow-up with rehabilitation at discharge. He inquires about Suboxone and understands the need to follow-up with detox/rehab for these medications. Objective Vitals Vital Signs Date Time Temp Pulse Resp B/P Pulse Ox O2 Delivery O2 Flow Rate FiO2 01/17/17 08:30 97.6 63 14 107/55 98 01/17/17 03:19 98.2 78 18 108/64 98 01/16/17 23:54 98.1 68 18 130/61 98 01/16/17 20:55 20 01/16/17 20:45 88 01/16/17 19:48 98.1 75 22 108/71 100 01/16/17 15:40 98.6 84 18 113/56 97 01/16/17 11:27 98.6 75 18 109/56 99 01/16/17 09:40 69 Result Diagram: 01/16/17 0710 01/16/17 0710 Imaging Last Impressions Chest X-Ray 01/15/17 0103 Signed Impressions: Service Date/Time: Sunday, January 15, 2017 01:19 - CONCLUSION: No acute disease. Yonatan López MD Objective Remarks GENERAL: Well-developed well-nourished. In no acute distress. SKIN: Warm and dry. Multiple track fisher of the upper extremities especially around tattoos of the left arm. Left arm with some induration, but no swelling or erythema. HEENT: Normocephalic. Pupils equal and round. Mucous membranes pink and moist. CARDIOVASCULAR: Regular rate and rhythm. No murmur appreciated. RESPIRATORY: No accessory muscle use. Clear to auscultation. Breath sounds equal bilaterally. GASTROINTESTINAL: Abdomen soft, non-tender, nondistended. Bowel sounds x4. MUSCULOSKELETAL: Hard, tender palpable superficial veins of the left upper extremity. No clubbing or cyanosis. No edema. NEUROLOGICAL: Awake and alert. No focal neurological deficits. Moves upper and lower extremities spontaneously. Normal speech. PSYCHIATRIC: Appropriate mood and affect; insight and judgment normal. A/P Problem List: (1) Lymphangitis ICD Code: I89.1 Status: Acute (2) IVDU (intravenous drug user) ICD Code: F19.90 Status: Acute (3) Hypokalemia ICD Code: E87.6 Status: Acute Assessment and Plan 21-year-old male with a PMH of Anxiety, Depression, Impulsive Disorder, h/o Suicide Attempt and IVDU who presented to the ER with complaints of left arm swelling and pain x3 days. Cellulitis/Lymphangitis: s/p IVDU w/ progressive erythema/tenderness of LUE, + streaking; clinically improved. WBC normal, afebrile. Blood Cultures with NGTD , monitoring. Change IV Vanc/Zosyn to oral Bactrim and Keflex. Echocardiogram with no signs of endocarditis. Ibuprofen and heating pad as needed for discomfort and possible superficial thrombophlebitis. IVDU: Pt extensively counseled, he now expresses some desire to quit, interested in methadone/suboxone, counseled to follow up with drug rehab after discharge. Case management provided information on drug rehab programs. Ativan prn if withdrawal/agitation. Hypokalemia: K+ 3.3, given po KCl replacement. Repeat K 3.7, resolved. Tachycardia: Likely secondary to acute infection/dehydration. No evidence of sepsis. S/p IVF, HR now improved. Resolved. DC telemetry. Abnormal UA: U/a w/ evidence of possible UTI. Urine culture with no growth. No further treatment needed. DVT Prophylaxis: SCD/teds. Discharge Planning Anticipate discharge later today if blood cultures with no growth 48 hours. Nicolas Fernández Jan 17, 2017 09:20
[2017-01-17] MEDS ORDERED: SULF1TAB23 PO (09:21)
[2017-01-17] MEDS ORDERED: CEPH500C PO (09:21)
[2017-01-17] MEDS: LORazepam 2 MG/ML VIAL IV PUSH PRN (11:13)
--- NOTE | 2017-01-17 11:15 | HHI.DS ---
Discharge Summary Admission Date Jan 15, 2017 at 03:22 Discharge Date: Jan 17, 2017 Admitting Diagnosis lymphadenitis secondary to IVDA, rule out septicemia/bacteremia (1) Lymphangitis ICD Code: I89.1 Diagnosis: Principal (2) IVDU (intravenous drug user) ICD Code: F19.90 Diagnosis: Secondary Procedures None Brief History - From Admission This is a 21-year-old male with a PMH of Anxiety, Depression, Impulsive Disorder , h/o Suicide Attempt and IVDU who presented to the ER with complaints of left arm swelling and pain x3 days. States symptoms have gotten progressively worse since yesterday. Reports subjective fever/chills. On arrival, BP 139/96, HR 144, O2 sat 95% on RA, Afebrile. CBC unremarkable. K+ 3.3. Lactic Acid 1.0. UA w/ UTI. CXR with no acute findings. S/p Blood Cultures, Vanc/Zosyn in ER. CBC/BMP: 01/16/17 0710 01/16/17 0710 Significant Findings Laboratory Tests Test 01/15/17 01/15/17 01/16/17 01:25 03:30 07:10 Hematocrit 37.7 % 32.6 % (39.0-51.0) (39.0-51.0) Monocytes (%) (Auto) 10.9 % 11.2 % (0.0-8.0) (0.0-8.0) Monocytes # (Auto) 1.1 TH/MM3 (0-0.9) Potassium Level 3.3 MEQ/L (3.5-5.1) Chloride Level 97 MEQ/L (98-107) Carbon Dioxide Level 32.2 MEQ/L (21.0-32.0) Total Protein 9.0 GM/DL (6.4-8.2) Urine Turbidity HAZY (CLEAR) Urine Protein 30 mg/dL (NEG-TRACE) Urine Leukocyte Esterase LARGE (NEG) Urine WBC 60 /hpf (0-5) Urine Bacteria RARE /hpf (NONE) Urine Mucus FEW /lpf (OCC) Red Blood Count 3.91 MIL/MM3 (4.50-5.90) Hemoglobin 11.1 GM/DL (13.0-17.0) Calcium Level 8.4 MG/DL (8.5-10.1) Albumin 2.8 GM/DL (3.4-5.0) Imaging Last Impressions Chest X-Ray 01/15/17 0103 Signed Impressions: Service Date/Time: Tuesday, January 15, 2017 01:19 - CONCLUSION: No acute disease. Yonatan López MD PE at Discharge GENERAL: Well-developed well-nourished. In no acute distress. SKIN: Warm and dry. Multiple track fisher of the upper extremities especially around tattoos of the left arm. Left arm with some induration, but no swelling or erythema. HEENT: Normocephalic. Pupils equal and round. Mucous membranes pink and moist. CARDIOVASCULAR: Regular rate and rhythm. No murmur appreciated. RESPIRATORY: No accessory muscle use. Clear to auscultation. Breath sounds equal bilaterally. GASTROINTESTINAL: Abdomen soft, non-tender, nondistended. Bowel sounds x4. MUSCULOSKELETAL: Hard, tender palpable superficial veins of the left upper extremity. No clubbing or cyanosis. No edema. NEUROLOGICAL: Awake and alert. No focal neurological deficits. Moves upper and lower extremities spontaneously. Normal speech. PSYCHIATRIC: Appropriate mood and affect; insight and judgment normal. Pt update on day of discharge Blood cultures negative 48 hours. Hospital Course 21-year-old male with a PMH of Anxiety, Depression, Impulsive Disorder, h/o Suicide Attempt and IVDU who presented to the ER with complaints of left arm swelling and pain x3 days. Cellulitis/Lymphangitis: s/p IVDU w/ progressive erythema/tenderness of LUE, + streaking; clinically improved. WBC normal, afebrile. Blood Cultures with NGTD. Changed IV Vanc/Zosyn to oral Bactrim and Keflex. Echocardiogram with no signs of endocarditis. Ibuprofen and heating pad as needed for discomfort and possible superficial thrombophlebitis. IVDU: Pt extensively counseled, he now expresses some desire to quit, interested in methadone/suboxone, counseled to follow up with drug rehab after discharge. Case management provided information on drug rehab programs. Pt Condition on Discharge: Stable Discharge Disposition: Discharge Home Discharge Time: > 30 minutes Discharge Instructions DIET: Follow Instructions for: As Tolerated, No Restrictions Activities you can perform: Regular-No Restrictions Follow up Referrals: PCP Follow-up - 1 Week New Medications: Cephalexin (Cephalexin) 500 Mg Cap 500 MG PO Q8HR Infection #15 CAP Sulfamethoxazole-Trimethoprim (Sulfamethoxazole-Trimethoprim) 800-160 Mg Tab 1 TAB PO Q12HR Infection #10 TAB Nicolas Fernández Jan 17, 2017 11:15
[2017-01-17 11:55] VITALS: BP 112/59; PULSE 73; RESP 18; TEMP 98; O2SAT 98
[2017-01-17] MEDS ORDERED: CEPHALEXIN MONOHYDRATE 500 MG CAP PO SCH (14:00)
[2017-01-17] MEDS ORDERED: PHARMACY ORDERED LAB ONE (17:45)
[2017-01-17] MEDS ORDERED: SULFAMETHOXAZOLE-TRIMETHOPRIM DS 800-160 MG TAB PO SCH (21:00)
== END 2017-01-17 13:27 | disposition home or self-care (01) ==
LOC: NEPE 20:00 → NEDA 01-15 03:22 → NEPGCP 01-15 04:43
PROVIDERS: ADMIT Hospitalist; ATTEND Hospitalist
DX: I89.1 Lymphangitis (principal); E87.6 Hypokalemia; R00.0 Tachycardia, unspecified; N39.0 Urinary tract infection, site not specified; R50.9 Fever, unspecified; R07.9 Chest pain, unspecified; F11.90 Opioid use, unspecified, uncomplicated; R60.0 Localized edema; R36.9 Urethral discharge, unspecified; R30.0 Dysuria; F41.9 Anxiety disorder, unspecified; F32.9 Major depressive disorder, single episode, unspecified; R45.87 Impulsiveness; F90.9 Attention-deficit hyperactivity disorder, unspecified type; F43.10 Post-traumatic stress disorder, unspecified; F17.200 Nicotine dependence, unspecified, uncomplicated
CPT/HCPCS: 71010; 80053; 80202; 81001; 83605; 85025; 87040; 87086; 87491; 87591; 93005; 93306; 96372; 96374; 99285; G0378; J0696; J2060; J2543; J3370; J7030; J7050

== ENCOUNTER 2017-02-05 19:12 | Emergency (ER) | payer MEDICAID ==
[~2017-02-05] VITALS: Ht 172.7 cm; Wt 70.0 kg
[~2017-02-05 19:12] MED LIST: CEPH500C PO; SULF1TAB23 PO
[2017-02-05 19:19] VITALS: BP 112/68; PULSE 90; RESP 16; TEMP 98.3; O2SAT 98
[2017-02-05] MEDS ORDERED: ONDANSETRON HCL 4 MG/2 ML VIAL ONE (19:22)
[2017-02-05] MEDS ORDERED: ONDANSETRON HCL 4 MG/2 ML VIAL IV ONE (19:30)
--- NOTE | 2017-02-05 19:38 | PD ---
HPI Chief Complaint: OD/ Ingestion Time Seen by Provider: 19:17 Travel History International Travel<30 days: No Contact w/Intl Traveler<30days: No Traveled to known affect area: No History of Present Illness HPI The 21-year-old young man presents emergency department following opiate overdose. She has a history of IV drug use of heroin. States she was injecting a white powder that he was told was her arm but with different than he typically use. He was found by EMS with a GCS of 3, was given 0.4 mg of naloxone. It's unclear to me who called. Patient denies any complaints. Denies nausea vomiting or shortness of breath. Is a little bit agitated and irritated. History Past Medical History Narrative Medical IV drug use Tetanus Vaccination: < 5 Years Influenza Vaccination: Yes Social History Alcohol Use: Yes (OCC) Tobacco Use: Yes (1/2 PPD) Allergies-Medications (Allergen,Severity, Reaction): Coded Allergies: No Known Allergies (Unverified , 02/05/17) Reported Meds & Prescriptions Reported Meds & Active Scripts Active No Active Prescriptions or Reported Medications Review of Systems Except as stated in HPI: all other systems reviewed are Neg Physical Exam Narrative GENERAL: Well-appearing 21-year-old man, no acute distress. A little bit irritated. SKIN: Focused skin assessment warm/dry. HEAD: Atraumatic. Normocephalic. EYES: Pupils equal and round. No scleral icterus. No injection or drainage. CARDIOVASCULAR: Regular rate and rhythm. No murmur appreciated. RESPIRATORY: No accessory muscle use. Clear to auscultation. Breath sounds equal bilaterally. GASTROINTESTINAL: Abdomen soft, non-tender, nondistended. Hepatic and splenic margins not palpable. MUSCULOSKELETAL: No obvious deformities. No clubbing. No cyanosis. No edema. NEUROLOGICAL: Awake and alert. No obvious cranial nerve deficits. Motor grossly within normal limits. Normal speech. PSYCHIATRIC: Irritated but directable. Data Data Last Documented VS Vital Signs Date Time Temp Pulse Resp B/P Pulse Ox O2 Delivery O2 Flow Rate FiO2 02/05/17 21:06 75 15 110/70 99 Room Air 02/05/17 19:19 98.3 Orders Ondansetron Inj (Zofran Inj) (02/05/17 19:22) Ondansetron Inj (Zofran Inj) (02/05/17 19:30) Iv Access Insert/Monitor (02/05/17 19:24) Ecg Monitoring (02/05/17 19:24) Oximetry (02/05/17 19:24) Acetaminophen (Tylenol) (02/05/17 20:00) Electrocardiogram (02/05/17 19:26) MDM Medical Decision Making Medical Screen Exam Complete: Yes Emergency Medical Condition: Yes Differential Diagnosis Opiate overdose, aspiration, substance-induced mood disorder, other Narrative Course Medical decision making INITIAL: This 21-year-old man who presents emergency Department after accidental overdose on opiates, possibly heroin, responded well to Narcan. Will observe patient in the ED for 4 hours. FINAL: Patient in the ER for 3 and affect our. He states his right ear only as ago. He sober. No evidence of respiratory depression or effect from the opiates. Counseled in detail about the risks. It sounds like he was using what he thought was a normal dose and he may been cut with something else. In any case he has any return any time if he needs help. Diagnosis Primary Impression: Opiate or related narcotic overdose Additional Instructions: Avoid opioids. Return to the emergency department for any new or worsening symptoms. Scripts No Active Prescriptions or Reported Meds Disposition: 01 DISCHARGE HOME Condition: Stable Gorge Negro MD Feb 05, 2017 19:38
[2017-02-05] MEDS ORDERED: ACETAMINOPHEN 325 MG TAB PO ONE (20:00)
[2017-02-05 21:06] VITALS: BP 110/70; PULSE 70; PULSE 75; RESP 15; O2SAT 99
[2017-02-05 23:16] VITALS: BP 126/69
--- NOTE | 2017-02-06 12:43 | EKG ---
Date Performed: 02/05/2017 Time Performed: 19:26:17 PTAGE: 21 years EKG: Sinus rhythm WITH SINUS ARRHYTHMIA Compared to prior tracing no significant change NORMAL ECG PREVIOUS TRACING : 01/15/2017 01.54 DOCTOR: Timothy Cuevas Interpretating Date/Time 02/06/2017 12:35:25
== END 2017-02-05 23:17 | disposition home or self-care (01) ==
LOC: NEPC 19:12
DX: T40.601A Poisoning by unspecified narcotics, accidental (unintentional), initial encounter (principal); R45.4 Irritability and anger; I49.9 Cardiac arrhythmia, unspecified; F17.200 Nicotine dependence, unspecified, uncomplicated
CPT/HCPCS: 93005; 96374; 99284; J2405

== ENCOUNTER 2017-03-05 11:12 | Emergency (ER) | payer MEDICAID ==
[~2017-03-05] VITALS: Ht 182.9 cm; Wt 75.0 kg
[2017-03-05 11:17] VITALS: BP 121/64; PULSE 108; RESP 24; O2SAT 97
[2017-03-05 11:39] VITALS: BP 108/58; PULSE 102; RESP 21; O2SAT 98
[2017-03-05 11:46] VITALS: TEMP 98.4
--- NOTE | 2017-03-05 11:58 | PD ---
HPI Chief Complaint: Alcohol/Drug Intoxication Time Seen by Provider: 11:36 Travel History International Travel<30 days: No Contact w/Intl Traveler<30days: No Traveled to known affect area: No History of Present Illness HPI This is a 21-year-old male who uses heroin who presents to the emergency department requesting detox. He says he tried to go to [facility] but they didn't have any beds. He uses IV drugs. He last used this morning. When he talked to the police officers this morning they told him to come to [place] and we could stabilize him until he can get a bed at [facility]. He has no complaints of chest pain or shortness of breath at this point. [facility] Past Medical History ADHD: Yes (ADHD) Anxiety: Yes Depression: Yes Cancer: No Cardiovascular Problems: No Diabetes: No Diminished Hearing: No Endocrine: No Genitourinary: No Musculoskeletal: No Neurologic: No Psychiatric: Yes (PTSD, SEVERE ANXIETY, DEPRESSION, IMPULSIVE DISORDER.) Reproductive: No Respiratory: No Migraines: No Seizures: No Thyroid Disease: No Ulcer: No Past Surgical History Other Surgery: Yes (SKIN GRAFTS BILAT LEGS--AGE 13) Social History Alcohol Use: Yes (OCC) Tobacco Use: Yes (1/2 PPD) Substance Use: Yes (IV drug use, CRACK, COCAINE, CANNABIS, METH, CRANK ) Allergies-Medications (Allergen,Severity, Reaction): Coded Allergies: No Known Allergies (Unverified , 03/05/17) Reported Meds & Prescriptions Reported Meds & Active Scripts Active No Active Prescriptions or Reported Medications Review of Systems Except as stated in HPI: all other systems reviewed are Neg Physical Exam Narrative GENERAL:Well appearing, no acute distress SKIN: Small skin wounds on the upper and lower extremities at different stages of healing HEAD: Atraumatic. Normocephalic. EYES: Pupils equal and round. No injection or drainage. ENT: Moist mucous membranes NECK: Trachea midline. CARDIOVASCULAR: Regular rate and rhythm. No murmur appreciated. RESPIRATORY: Clear to auscultation. Breath sounds equal bilaterally. GASTROINTESTINAL: Abdomen soft, non-tender, nondistended. MUSCULOSKELETAL: No obvious deformities. NEUROLOGICAL: Awake and alert. No obvious cranial nerve deficits. Moving all extremities. PSYCHIATRIC: Appropriate mood and affect; insight and judgment normal. Data Data Last Documented VS Vital Signs Date Time Temp Pulse Resp B/P Pulse Ox O2 Delivery O2 Flow Rate FiO2 03/05/17 11:39 102 21 108/58 98 Room Air MDM Medical Decision Making Medical Screen Exam Complete: Yes Emergency Medical Condition: Yes Interpretation(s) Mild tachycardia, afebrile Differential Diagnosis Opiate abuse, opiate withdrawal, opiate dependence Narrative Course This is a 21-year-old male who presents to the emergency department requesting detox. He last used heroin this morning. He expresses a lot of frustration at the fact that he will not be admitted to the hospital for detox. Unfortunately he doesn't have any medical complaints and he doesn't meet Pimentel act criteria. He denies suicidal ideation. His symptoms are strictly substance related. I don't think I can keep him against his will. Patient wants to leave. I advised him to follow up with [facility] as soon as possible. Diagnosis Primary Impression: Opiate dependence Qualified Code: F11.20 - Uncomplicated opioid dependence Patient Instructions: General Instructions Additional Instructions: Return to the emergency department if you are having thoughts of hurting yourself or others. Follow up with [facility] in regards to psychiatric or substance related issues at: [address] [place], [place] [id number] Med/Other Pt SpecificInfo: No Change to Meds Scripts No Active Prescriptions or Reported Meds Disposition: 01 DISCHARGE HOME Condition: Stable Pat Zavala MD Mar 05, 2017 11:58
--- NOTE | 2017-03-06 12:26 | EKG ---
Date Performed: 03/05/2017 Time Performed: 11:32:26 PTAGE: 21 years EKG: Sinus rhythm POSSIBLE RIGHT VENTRICULAR CONDUCTION DELAY BORDERLINE ECG PREVIOUS TRACING : 02/05/2017 19.26 Compared to prior tracing no significant change DOCTOR: Best Griffith Interpretating Date/Time 03/06/2017 12:23:45
== END 2017-03-05 12:11 | disposition home or self-care (01) ==
LOC: NEPD 11:12
DX: F11.20 Opioid dependence, uncomplicated (principal); R00.0 Tachycardia, unspecified; F90.9 Attention-deficit hyperactivity disorder, unspecified type; F43.10 Post-traumatic stress disorder, unspecified; F63.9 Impulse disorder, unspecified; F41.9 Anxiety disorder, unspecified; F17.200 Nicotine dependence, unspecified, uncomplicated
CPT/HCPCS: 93005; 99282

== ENCOUNTER 2017-04-02 18:20 | Emergency (ER) | payer OTHER ==
[2017-04-02] MEDS ORDERED: SODIUM CHLOR 0.9% 1000 ML INJ 1,000 ML IV ONE ×2 (18:45→20:15)
--- NOTE | 2017-04-02 18:46 | PD ---
HPI Chief Complaint: BA Time Seen by Provider: 18:46 Travel History International Travel<30 days: No Contact w/Intl Traveler<30days: No Traveled to known affect area: No History of Present Illness HPI 21 year old male presents to the ED under a P[place] Act for psychiatric evaluation following an argument with his parents. Pt admits to using meth and marijuana prior to arrival. Denies suicidal or homicidal ideations. Is requesting food and a drink. He has other symptoms to report. PFSH Past Medical History ADHD: Yes (ADHD) Anxiety: Yes Depression: Yes Cancer: No Cardiovascular Problems: No Diabetes: No Diminished Hearing: No Endocrine: No Genitourinary: No Musculoskeletal: No Neurologic: No Psychiatric: Yes (PTSD, SEVERE ANXIETY, DEPRESSION, IMPULSIVE DISORDER.) Reproductive: No Respiratory: No Migraines: No Seizures: No Thyroid Disease: No Ulcer: No Past Surgical History Other Surgery: Yes (SKIN GRAFTS BILAT LEGS--AGE 13) Social History Alcohol Use: Yes (OCC) Tobacco Use: Yes (1/2 PPD) Substance Use: Yes (IV drug use, CRACK, COCAINE, CANNABIS, METH, CRANK ) Allergies-Medications (Allergen,Severity, Reaction): Coded Allergies: No Known Allergies (Unverified , 04/02/17) Reported Meds & Prescriptions Reported Meds & Active Scripts Active No Active Prescriptions or Reported Medications Review of Systems Except as stated in HPI: all other systems reviewed are Neg Physical Exam Narrative GENERAL: Well nourished male patient under the influence of meth with jerking movements unable to sit still, but does not appear in distress SKIN: Warm and dry. Multiple scabbed lesions on the extremities, chest and face. Varying in sizes. No drainage. No significant erythema HEAD: Atraumatic. Normocephalic. EYES: Pupils equal and round. No scleral icterus. No injection or drainage. ENT: No nasal bleeding or discharge. Mucous membranes pink and moist. NECK: Trachea midline. No JVD. CARDIOVASCULAR: Tachycardic rate and rhythm. RESPIRATORY: No accessory muscle use. Clear to auscultation. Breath sounds equal bilaterally. GASTROINTESTINAL: Abdomen soft, non-tender, nondistended. Hepatic and splenic margins not palpable. MUSCULOSKELETAL: Extremities without clubbing, cyanosis, or edema. No obvious deformities. NEUROLOGICAL: Awake and alert. No obvious cranial nerve deficits. Motor grossly within normal limits. Five out of 5 muscle strength in the arms and legs. Normal speech. Data Data Last Documented VS Vital Signs Date Time Temp Pulse Resp B/P (MAP) Pulse Ox O2 Delivery O2 Flow Rate FiO2 04/03/17 12:50 67 18 107/53 (71) 98 04/02/17 19:24 98.1 Orders Orders Complete Blood Count With Diff (04/02/17 18:43) Basic Metabolic Panel (Bmp) (04/02/17 18:43) Electrocardiogram (04/02/17 18:43) Psych Screen (04/02/17 18:43) Drug Screen, Random Urine (04/02/17 18:43) Alcohol (Ethanol) (04/02/17 18:43) Sodium Chlor 0.9% 1000 Ml Inj (Ns 1000 M (04/02/17 18:45) Sodium Chlor 0.9% 1000 Ml Inj (Ns 1000 M (04/02/17 20:15) Lorazepam (Ativan) (04/02/17 22:15) Diet Regular Basic (04/03/17 Breakfast) Diet Regular Basic (04/03/17 Lunch) Labs Laboratory Tests Test 04/02/17 18:34 04/03/17 02:50 White Blood Count 20.9 TH/MM3 Red Blood Count 4.98 MIL/MM3 Hemoglobin 14.4 GM/DL Hematocrit 41.8 % Mean Corpuscular Volume 83.9 FL Mean Corpuscular Hemoglobin 28.9 PG Mean Corpuscular Hemoglobin Concent 34.4 % Red Cell Distribution Width 14.3 % Platelet Count 364 TH/MM3 Mean Platelet Volume 7.3 FL Neutrophils (%) (Auto) 73.6 % Lymphocytes (%) (Auto) 14.0 % Monocytes (%) (Auto) 11.7 % Eosinophils (%) (Auto) 0.2 % Basophils (%) (Auto) 0.5 % Neutrophils # (Auto) 15.4 TH/MM3 Lymphocytes # (Auto) 2.9 TH/MM3 Monocytes # (Auto) 2.4 TH/MM3 Eosinophils # (Auto) 0.0 TH/MM3 Basophils # (Auto) 0.1 TH/MM3 CBC Comment AUTO DIFF Differential Comment AUTO DIFF CONFIRMED Platelet Estimate NORMAL Platelet Morphology Comment NORMAL Red Cell Morphology Comment NORMAL Blood Urea Nitrogen 37 MG/DL Creatinine 1.40 MG/DL Random Glucose 96 MG/DL Calcium Level 9.7 MG/DL Sodium Level 131 MEQ/L Potassium Level 3.7 MEQ/L Chloride Level 95 MEQ/L Carbon Dioxide Level 22.6 MEQ/L Anion Gap 13 MEQ/L Estimat Glomerular Filtration Rate 65 ML/MIN Ethyl Alcohol Level LESS THAN 3 MG/DL Urine Opiates Screen NEG Urine Barbiturates Screen NEG Urine Amphetamines Screen POS Urine Benzodiazepines Screen NEG Urine Cocaine Screen NEG Urine Cannabinoids Screen POS MDM Medical Decision Making Medical Screen Exam Complete: Yes Emergency Medical Condition: Yes Medical Record Reviewed: Yes Differential Diagnosis polysubstance abuse vs mood disorder vs adjustment reaction disorder Narrative Course 21 year old male presents to the ED under a Pimentel Act for evaluation. Pt appears under the influence of his reported meth that he took prior to arrival. Patient denies suicidal or homicidal ideations. Laboratory Tests Test 04/02/17 18:34 04/03/17 02:50 White Blood Count 20.9 TH/MM3 Red Blood Count 4.98 MIL/MM3 Hemoglobin 14.4 GM/DL Hematocrit 41.8 % Mean Corpuscular Volume 83.9 FL Mean Corpuscular Hemoglobin 28.9 PG Mean Corpuscular Hemoglobin Concent 34.4 % Red Cell Distribution Width 14.3 % Platelet Count 364 TH/MM3 Mean Platelet Volume 7.3 FL Neutrophils (%) (Auto) 73.6 % Lymphocytes (%) (Auto) 14.0 % Monocytes (%) (Auto) 11.7 % Eosinophils (%) (Auto) 0.2 % Basophils (%) (Auto) 0.5 % Neutrophils # (Auto) 15.4 TH/MM3 Lymphocytes # (Auto) 2.9 TH/MM3 Monocytes # (Auto) 2.4 TH/MM3 Eosinophils # (Auto) 0.0 TH/MM3 Basophils # (Auto) 0.1 TH/MM3 CBC Comment AUTO DIFF Differential Comment AUTO DIFF CONFIRMED Platelet Estimate NORMAL Platelet Morphology Comment NORMAL Red Cell Morphology Comment NORMAL Blood Urea Nitrogen 37 MG/DL Creatinine 1.40 MG/DL Random Glucose 96 MG/DL Calcium Level 9.7 MG/DL Sodium Level 131 MEQ/L Potassium Level 3.7 MEQ/L Chloride Level 95 MEQ/L Carbon Dioxide Level 22.6 MEQ/L Anion Gap 13 MEQ/L Estimat Glomerular Filtration Rate 65 ML/MIN Ethyl Alcohol Level LESS THAN 3 MG/DL Urine Opiates Screen NEG Urine Barbiturates Screen NEG Urine Amphetamines Screen POS Urine Benzodiazepines Screen NEG Urine Cocaine Screen NEG Urine Cannabinoids Screen POS Patient is given IV normal saline fluid bolus. BUN is 37 and creatinine is 1.40. Leukocytosis of 20.9 is likely due to dehydration and substance abuse. Toxicology is positive for amphetamines and cannabinoids. Patient is medically cleared to undergo psychiatric screening for further evaluation and disposition. Diagnosis Primary Impression: Substance induced mood disorder Additional Impression: IVDU (intravenous drug user) Scripts No Active Prescriptions or Reported Meds Condition: Stable Ana Mcfarlane Apr 02, 2017 18:46
[2017-04-02 19:20] LABS: AUTOMATED NEUTROPHIL # 15.4 TH/MM3 (1.8-7.7); BASOPHIL # 0.1 TH/MM3 (0-0.2); BASOPHIL % 0.5 % (0.0-2.0); EOSINOPHIL % 0.2 % (0.0-4.0); HEMATOCRIT 41.8 % (39.0-51.0); LYMPHOCYTE # 2.9 TH/MM3 (1.0-4.8); MEAN CELL VOLUME 83.9 FL (80.0-100.0); MEAN CORPUSCULAR HEMOGLOBIN 28.9 PG (27.0-34.0); MEAN CORPUSCULAR HGB CONC 34.4 % (32.0-36.0); MONO % 11.7 % (0.0-8.0); NEUT % 73.6 % (16.0-70.0); PLATELET COUNT 364 TH/MM3 (150-450); RED BLOOD COUNT 4.98 MIL/MM3 (4.50-5.90); RED CELL DISTRIBUTION WIDTH 14.3 % (11.6-17.2); WHITE BLOOD COUNT 20.9 TH/MM3 (4.0-11.0)
[2017-04-02 19:21] LABS: HEMO FLAGS AUTO DIFF
[2017-04-02 19:24] VITALS: BP 139/62; PULSE 89; RESP 16; TEMP 98.1; O2SAT 98
[2017-04-02 19:33] LABS: ANION GAP 13 MEQ/L (5-15); BICARBONATE 22.6 MEQ/L (21.0-32.0); BLOOD UREA NITROGEN 37 MG/DL (7-18); CHLORIDE 95 MEQ/L (98-107); GLOMERULAR FILTRATION RATE 65 ML/MIN (>89); POTASSIUM 3.7 MEQ/L (3.5-5.1); SODIUM (NA) 131 MEQ/L (136-145)
[2017-04-02 19:35] LABS: ALCOHOL LESS THAN 3 MG/DL (0-5)
[2017-04-02 19:56] LABS: PLATELET ESTIMATE SMEAR NORMAL (NORMAL); PLATELET MORPHOLOGY NORMAL (NORMAL); SCAN/DIFF AUTO DIFF CONFIRMED
[2017-04-02 21:59] VITALS: BP 120/60; PULSE 112; RESP 18; O2SAT 98
[2017-04-02] MEDS ORDERED: LORazepam 2 MG TAB PO ONE (22:15)
[2017-04-02 23:41] VITALS: BP 120/112; PULSE 95; RESP 18; O2SAT 98
[2017-04-03 02:56] VITALS: BP 104/54; PULSE 86; RESP 18; O2SAT 98
--- NOTE | 2017-04-03 09:53 | EKG ---
Date Performed: 04/02/2017 Time Performed: 18:41:25 PTAGE: 21 years EKG: SINUS TACHYCARDIA POSSIBLE RIGHT VENTRICULAR CONDUCTION DELAY ABNORMAL RHYTHM ECG INTERPRET ATION BASED ON A DEFAULT AGE OF 40 YEARS PREVIOUS TRACING 03/05/17 Since prior tracing, sinus rate is higher. DOCTOR: Timothy Cuevas Interpretating Date/Time 04/03/2017 09:51:47
[2017-04-03 10:20] VITALS: BP 107/53; PULSE 87; RESP 16
[2017-04-03 12:50] VITALS: BP 107/53
== END 2017-04-03 14:40 | disposition short-term general hospital (02) ==
LOC: NEDAMB 18:20 → NEPJ 04-03 14:40
DX: F39 Unspecified mood [affective] disorder (principal); F19.10 Other psychoactive substance abuse, uncomplicated; D72.829 Elevated white blood cell count, unspecified; F90.9 Attention-deficit hyperactivity disorder, unspecified type; F41.9 Anxiety disorder, unspecified; F32.9 Major depressive disorder, single episode, unspecified; F43.10 Post-traumatic stress disorder, unspecified; R45.87 Impulsiveness; F17.200 Nicotine dependence, unspecified, uncomplicated
CPT/HCPCS: 80048; 80307; 85025; 93005; 96360; 99284; J7030